=== PATIENT | female | born 1990 | race Caucasian/White ===

== ENCOUNTER → 2019-08-16 09:05 | Outpatient (BNVA) | payer MEDICAID, SELFPAY | PROVIDERS: Family Provider Counselor Professional; Visit Provider Obstetrics & Gynecology | DX: Z34.92 Encounter for supervision of normal pregnancy, unspecified, second trimester | CPT/HCPCS: 80307; 81000; 81003; 85027; 86592; 86762; 86803; 86850; 86900; 87086; 87340; 87389; 87491; 87591 ==

== ENCOUNTER → 2019-09-05 09:02 | Outpatient (BNVA) | payer MEDICAID, SELFPAY | PROVIDERS: Family Provider Counselor Professional; Visit Provider Obstetrics & Gynecology | DX: Z34.02 Encounter for supervision of normal first pregnancy, second trimester (principal) | CPT/HCPCS: 76805; 80076; 84315 ==

== ENCOUNTER → 2019-09-16 10:52 | Outpatient (BNVA) | payer MEDICAID, SELFPAY | PROVIDERS: Family Provider Counselor Professional; Visit Provider Obstetrics & Gynecology | DX: O35.1XX0 Maternal care for (suspected) chromosomal abnormality in fetus, not applicable or unspecified (principal); Z3A.21 21 weeks gestation of pregnancy | CPT/HCPCS: 81003 ==

== ENCOUNTER 2021-02-21 15:06 | Inpatient (IN) | payer MEDICAID, SELFPAY ==
[2021-02-21] VITALS (47 sets, daily range): BP systolic 114–176; BP diastolic 61–93; PULSE 82–134; RESP 16; TEMP 36.5–37.1; O2SAT 98–100
[2021-02-21] MEDS: lactated ringers 1,000 ML 999 ML IV (15:34)
[2021-02-21] MEDS: ampicillin 2,000 MG in sodium chloride 0.9% (plus) 50 ML 100 MG IV (15:43)
--- NOTE | 2021-02-21 15:43 | PM.OBGYHP ---
Providers/Chief Complaint Admitting Physician: Dcu Wiggins MD Chief Complaint: SROM HPI ELECTRONIC GAME DEVELOPER History of Present Illness Dayan Montgomery is a 30 year old female with an EDC of 03/13/2021. She is a 4, para 3 female with 1 previous section with her second infant secondary to breech presentation. She had a previous vaginal after at around 30 weeks gestation at home with her last . It was a rapid labor and was complicated by methamphetamine use at the time. She claims she has been clean since that time. We did receive records from [facility] where she was being seen by Dr. Garza. At her first visit her drug screen was negative. Her blood type is O+ with antibody screen negative. Rubella is immune, RPR was nonreactive and hepatitis C was positive. She did have recent case of Covid with positive test on 01/29/2021. She is presently asymptomatic with no lingering problems. She has spontaneous rupture membranes at home and arrived to [facility] in [place]. When found to be in labor, she asked to be sent to the nearest hospital and therefore this physician was called and she was sent to [facility] labor and delivery unit. Upon arrival to labor and delivery she is definitely in active labor with ruptured membranes and is 4 cm dilated on arrival. She continues to deny any recent drug use or abuse. She does have some elevated blood pressures, however she is an active labor and in pain. She does desire epidural anesthesia and this will be offered to her after fluid boluses and. As we do not know group B status, ampicillin protocol has been started. Will contact either Dr. Harding or the ear nose throat physician on-call for backup just in case we need emergency section due to previous section. She would like to proceed with vaginal after . Present Details : 4 Para: 3 Review of Systems Const: Denies: fever(s), chills or change in weight Eyes: Denies: change in vision or blurry vision ENMT: Denies: mouth pain or oral sores Card: Denies: chest pain, palpitations, edema or syncope Resp: Denies: dyspnea, productive cough, non-productive cough or wheezing GI: Reports: abdominal pain (Contractions.); Denies: nausea, vomiting or heartburn : Reports: amenorrhea (.); Denies: flank pain Musc: Denies: neck pain, back pain or joint pain Skin/Breast: Denies: rash Psych: Denies: anxiety or depression Endo: Denies: polyuria, cold intolerance or excessive sweating Hiro/Lymph: Denies: easy bruising All/Imm: Denies: urticaria or facial swelling Medications/Allergies Home Medications Medication Instructions Recorded Confirmed Last Taken Type vitamin#30 30 mg iron-10 1 cap PO DAILY cap 08/16/19 02/21/21 Unknown History mg iron-folic acid 1 mg-omg3 capsule ranitidine HCl 150 mg capsule 150 mg PO QDAY 08/16/19 02/21/21 Unknown History iron 325 mg PO DAILY 02/21/21 02/21/21 Unknown History Allergies Allergy/AdvReac Type Severity Reaction Status Date / Time azithromycin Allergy Mild as a Verified 02/21/21 15:17 child, does not remember what kind of reaction. sulfamethoxazole Allergy Mild hives Verified 02/21/21 15:17 [From Bactrim] trimethoprim [From Bactrim] Allergy Mild hives Verified 02/21/21 15:17 erythromycin base Allergy Unknown Verified 02/21/21 15:17 tramadol Allergy ALGY-Hives Verified 02/21/21 15:17 PFSH ELECTRONIC GAME DEVELOPER PFSH: Family History Mother Stroke Hypertension Family/Other Heart disease maternal uncle Social History Smoking and tobacco status: current every day smoker cigarettes Packs smoked per day: 0.5 Alcohol intake: never Last substance use date: 06/23/19 Additional social history: well-balanced Other Female Reproductive History: Hx Age of Menarche: 15 Duration of menses: 6-7 days (4-7 days) Date of Last Menstrual Period: 04/08/19 Cycle Length: regular Menstrual flow: normal/abnormal: normal History History History 3 Term 2 Miscarriages/Ectopic 0 0 Living Children 2 Past Pregnancies Del. Date GA/Weeks Outcome Route Wt Inf Gender Labor Lgth Comp. Anesthesia Location 12/27/11 38 live - full term Vaginal 2.58 kg Female 13.[address] [facility], [facility] 12/29/14 40 live - full term 2.948 kg Female regional [facility], [facility] Calculator Estimated Delivery Date Method Current WG Current Estimate 01/13/20 LMP (Certain) 97w 6d Vitals/I&O/Wt Last Vital Signs Temp 98.1 F 02/21/21 15:04 Pulse 89 02/21/21 15:24 BP 176/92 02/21/21 15:24 Physical Exam Const: COMMON NORMALS: no acute distress (Obviously uncomfortable with contractions.) and average body habitus HENMT: COMMON NORMALS: moist oral mucous membranes Chest: COMMONS NORMALS: normal inspection of the chest Resp: COMMON NORMALS: normal respiratory effort, No retractions, No use of accessory muscles and clear to auscultation bilaterally Cardio: COMMON NORMALS: regular rate, regular rhythm and No murmurs present (Cardio) GI: COMMON NORMALS: Normal to inspection, nondistended, normoactive bowel sounds present (She has a gravid uterus.), Soft to palpation and non-tender : COMMON NORMALS: Yes no CVA tenderness MANUAL OB EXAM: dilated 5 cm, effaced 75% and station -1 Back/Pelvis: COMMON NORMALS: no CVA tenderness and no thoracic nor lumbar tenderness Extremity: COMMON NORMALS: normal to inspection, full ROM and no pedal edema Neuro: COMMON NORMALS: CN's II-XII intact bilaterally, moves all extremities and no focal motor deficits Psych: COMMON NORMALS: mental status grossly normal, cooperative and normal affect (Slightly anxious.) Skin: COMMON NORMALS: no rashes or lesions noted A&P Assessment and plan (1) 37 or more weeks gestation of : She presently has spontaneous rupture membranes and is an active labor. We will plan for vaginal after per her request. I will seek backup from a physician with section privileges. Also will proceed with group B strep precautions with intravenous ampicillin at this time. Status: Acute (2) labor in third trimester: Plan routine labor and delivery process with backup of a ear nose throat physician with privileges. Status: Acute (3) Hepatitis C antibody test positive: We will continue to use universal precautions and encourage her to proceed with treatment after delivery of the infant. Status: Acute (4) History of drug dependence/abuse: Patient denies any recent drug use or abuse. She has a history of IV methamphetamine use with positive hepatitis C status. Drug screen was negative at her ear nose throat physician's office and will recheck care. Status: Acute Attestations Medical Necessity Statement*: This patient is with a 37-week intrauterine . She has had a previous section secondary to breech position with a previous vaginal after although it was very early. At this time she appears to be progressing nicely but plan 1-2 midnight hospital stay. Time Spent in Patient Care: 16 - 35 minutes Coding Level of Care Code Acute Set Up Inspector for Chg Fwd Diagnoses 37 or more weeks gestation of labor in third trimester O60.03 Hepatitis C antibody test positive R76.8 History of drug dependence/abuse F19.21
[2021-02-21 15:50] LABS: Basophils # 0.1 10^3/uL (0.0-0.1); Basophils % 0.4 %; Eosinophils # 0.1 10^3/uL (0.0-0.8); Eosinophils % 0.4 %; Hemoglobin 8.6 g/dL (11.5-15.3); Lymphocytes # 2.5 10^3/uL (0.8-4.8); Lymphocytes % 15.4 %; Mean Corpuscular HGB Conc 28.7 g/dL (30.0-36.0); Mean Corpuscular Hemoglobin 19.5 pg (28.0-34.0); Monocytes # 1.1 10^3/uL (0.2-0.9); Monocytes % 6.7 %; Neutrophils # 12.35 10^3/uL (1.8-7.7); Neutrophils % 76.2 %; Nucleated Red Blood Cells % 0.1 %; Platelet Count 233 10^3/cmm (130-400); Red Blood Count 4.41 10^6/uL (4.1-5.3); Red Cell Distribution Width 19.8 % (12.1-15.1); White Blood Count 16.2 10^3/uL (4.0-10.0)
[2021-02-21 15:51] LABS: Amphetamines Screen Urine Negative (Negative); Barbiturates Screen Urine Negative (Negative); Benzodiazepines Screen Urine Negative (Negative); Cocaine Screen Urine Negative (Negative); Opiate Screen Urine Negative (Negative); PCP Screen Urine Negative (Negative); THC Screen Urine Negative (Negative)
[2021-02-21] MEDS: ondansetron 2 mg/ML SDV 2 mL 4 MG IVP (16:15)
[2021-02-21 16:26] LABS: Urine Creatinine 44 mg/dL (28-217); Urine Protein Random 11 mg/dL
[2021-02-21 16:30] LABS: UPRO/UCREAT Ratio 0.25 mg/mg CR
--- NOTE | 2021-02-21 16:43 | ANES.PREANE2 ---
Pre-Anesthetic Assessment Pre-Anesthetic Assessment: Height/Weight: Height 1.55 m Weight 63.503 kg Temp Pulse Resp BP 98.1 F 92 16 149/74 02/21/21 15:04 02/21/21 16:39 02/21/21 16:40 02/21/21 16:39 Preop Diagnosis: labor pain Proposed Procedure: epidural Familial anesthetic complications: none Was Beta Dagmar taken within 24 hours: N/A Was Clonidine taken within 24 hours: N/A Social: Social History: Tobacco Packs per day: 0.5 Exam: Pre-Anes Outpt Exam: alert, oriented x 3, clear to auscultation bilaterally and regular rate & rhythm Airway: Submandibular: WNL Cervical ROM: WNL Dentition: Full History/ROS: Other Pulmonary: Pulmonary: None reported CV/HEM: CV/HEM: Anemia : : None reported Hepatic: Hepatic: Hepatitis Comments: hep C GI: GI: GERD Metabolic: Metabolic: None reported Musc/skel: Musc/skel: None reported Neuropsych: Neuropsych: Anxiety, Bipolar and Depression Anesthetic Plan: ASA status: 3 Anesthesia: Regional (specify below) Risk of > 500 ml blood loss (7ml/kg in children): No Meds/Allergies Current Medications: Current Medications Generic Name Dose Route Start Last Admin Trade Name Freq PRN Reason Stop Dose Admin Lactated Ringer's 1,000 mls @ 999 m ls/hr 02/21/21 15:13 02/21/21 15:34 Lactated Ringers IV 999 mls/hr .Q1H1M PRN Administration See label comment s Ondansetron HCl 4 mg 02/21/21 15:04 02/21/21 16:15 Ondansetron 2 Mg /Ml Sdv 2 Ml IVP 4 mg Q4H PRN Administration NAUSEA AND VOMITI NG PFSH Anesthesia PFSH: Family History Mother Stroke Hypertension Family/Other Heart disease maternal uncle Social History Smoking and tobacco status: current every day smoker cigarettes Packs smoked per day: 0.5 Alcohol intake: never Last substance use date: 06/23/19 Additional social history: well-balanced Female Reproductive History: : 4 Data Anesthesia CBC & Chem 7: 02/21/21 15:33 Other Labs: Laboratory Results - last 48 hr 02/21/21 02/21/21 02/21/21 15:30 15:30 15:33 WBC 16.2 H RBC 4.41 Hgb 8.6 L Hct 30.0 L MCV 68.0 L MCH 19.5 L MCHC 28.7 L RDW 19.8 H Plt Count 233 MPV 11.0 H Neut % (Auto) 76.2 Lymph % (Auto) 15.4 [place] % (Auto) 6.7 Eos % (Auto) 0.4 Baso % (Auto) 0.4 Neut # (Auto) 12.35 H Lymph # (Auto) 2.5 [place] # (Auto) 1.1 H Eos # (Auto) 0.1 Baso # (Auto) 0.1 Nucleated RBC % (auto) 0.1 Nucleated RBCs # 0.0 U Random Total Protein 11 Urine Creatinine 44 Protein/Creatinin Ratio 0.25 Urine Opiates Screen Negative Ur Barbiturates Screen Negative Ur Phencyclidine Scrn Negative Ur Amphetamines Screen Negative U Benzodiazepines Scrn Negative Urine Cocaine Screen Negative U Marijuana (THC) Screen Negative Cardiac Studies: No Data to Display
--- NOTE | 2021-02-21 17:16 | ANES.PROC ---
Anesthesia Procedures Procedure/Date: 02/21/21 epidural Procedure Narrative: epidural complete, bolus given, epidural pump initiated with DIRECTOR COMM[facility]ITY C[facility] education given, vitals taken during procedure using OBIX system and satisfactory throughout, patient admits to decrease pain, report of procedure to OB RN Epidural: Time Out Performed: Yes Consents Signed: Procedure Consent Consent: requested by attending/covering physician, from patient, risks and benefits reviewed and patient agrees to proceed Lumbar Level: L3-L4 Epidural position: sitting Epidural procedure: sterile prep of area, 1% lidocaine to numb the area (3 mL), 18 g needle, negative for paresthesia passed, neg for paresthesia, test dose given, 1.5% xylocaine 1:200k epi (5 mL), 0.2% Ropivacaine bolus ml (5 mL), placed PCEA, no systemic response, sterile dressing applied, L.U.D. no apparent complications and 0.2% Ropiavacaine @ mls/hr (13 mL/hr)
[2021-02-21] MEDS: ampicillin 1,000 MG in sodium chloride 0.9% (plus) 50 ML 100 MG IV (19:24)
[2021-02-21] MEDS: acetaminophen 325 mg Tablet 650 MG PO (19:59)
[2021-02-21] MEDS: oxytocin 30 UNIT/500 ML BAG 999 UNIT IV (21:08)
--- NOTE | 2021-02-21 21:21 | PM.DELIVERY ---
Delivery Note: Date of delivery: February 21, 2021 this 30-year-old 4 now para 4 female with an EDC of 03/13/21 had spontaneous rupture membranes at home a little before noon on the day of delivery. She went to [facility] for evaluation and asked to be sent to the nearest hospital for delivery as her last infant came very quickly. The emergency doctor at [facility] talk with this physician who agreed to accept the patient in transfer and she was transferred to [facility]. Upon arrival she was found to be approximately 4 cm dilated with contractions and obvious rupture of membranes. I was not told until arrival here that she had 1 previous section with her second secondary to breech presentation. Therefore, an filbert grower with privileges was called and was here at time of delivery. She received epidural anesthesia and labored throughout the evening hours to complete cervical dilatation. Once complete she delivered fairly quickly by spontaneous vaginal delivery at 2104 a 5 pound 10 ounce viable male . was suctioned at at the perineum and then delivered in occiput posterior position. The was then placed on mother's abdomen after delivery and suctioned more. After 1 minute, the umbilical cord was clamped and then cut by the infants grandmother. The umbilical cord had 3 blood vessels and there was no nuchal cord at delivery. Infant Apgars were 8 and 9 at 1 and 5 minutes respectively. The placenta delivered spontaneously at 2108 and had lots of calcifications. Evaluation of the vaginal vault and perineum and periurethral area found a small first-degree laceration in the right periurethral region which required no sutures. There was no other lacerations or problems. A sweep of the vaginal vault found the fundus to be firm with minimal bleeding. Mother and tolerated things well and there were no complications. Estimated blood loss approximate 144 mL. Pre-Delivery Course: This patient was followed by a physician in [facility] for her . Evaluation found her to have a blood type of O+ with antibody screen negative. Hepatitis B was negative hip, hepatitis C was positive, drug screen was negative, rubella was immune and RPR was nonreactive. Group B strep was not done prior to delivery but mom received 2 doses of ampicillin prior to delivery. Delivery: Spontaneous vaginal delivery. Post-Delivery Status: Patient is doing well at this time and will be followed for routine care. We'll adjust orders as necessary. A&P Assessment and plan (1) 37 or more weeks gestation of : Patient delivered by spontaneous vaginal delivery after spontaneous rupture membranes and onset of labor at home. Status: Acute (2) labor in third trimester: This was a late delivery and infant looks good at this time. Status: Acute (3) Hepatitis C antibody test positive: Will recommend follow-up as an outpatient with a hepatitis provider and monitor the infant at around 4 years of age. Status: Acute (4) History of drug dependence/abuse: Drug screen was negative here as it was at the filbert grower's office at onset of care. Status: Acute Coding Level of Care Code Acute Customer Service Cashier for Chg Fwd Diagnoses 37 or more weeks gestation of labor in third trimester O60.03 Hepatitis C antibody test positive R76.8 History of drug dependence/abuse F19.21
[2021-02-22] VITALS (15 sets, daily range): BP systolic 110–157; BP diastolic 56–80; PULSE 93–115; RESP 15–16; TEMP 35.7–36.7
--- NOTE | 2021-02-22 | PC.NURSE ---
This RN placed [place] Crisis Call to [facility]. Advised patient has reported that [facility] took custody of her child last year due to drug use. Advised patient reports that she has been clean for over a year and that patient's UDS was negative here upon admission and she also had a negative UDS documented in her records from [facility]. Advised that there was a question regarding limited care, 6 visits have been documented in her records and patient reports that she went to every visit that was scheduled. Patient is caring for and bonding well with baby.
[2021-02-22] MEDS: nicotine 7 mg Patch 1 PATCH TRANSDERMA (00:24)
[2021-02-22] MEDS: HYDROcodone-acetaminophen 5-325 mg Tablet PO ×3 (00:25→21:53)
[2021-02-22] MEDS: acetaminophen 325 mg Tablet 650 MG PO (03:52)
--- NOTE | 2021-02-22 07:29 | PM.OBGYPN ---
STRAIN TECHNICIAN Subjective Labor: Station: +2 Amniotic Membrane Status: Ruptured Monitor Mode: External Contraction Pattern: Regular Vitals/I&O/Wt Last Vital Signs Temp 97.3 F L 02/22/21 04:57 Pulse 93 02/22/21 07:08 Resp 16 02/22/21 01:09 BP 138/80 02/22/21 07:08 Pulse Ox 98 02/21/21 17:32 02/21/21 02/22/21 02/22/21 22:59 06:59 14:59 Intake Total 1740.0 / 1740.0 Output Total 500 / 500 300 / 800 Balance 1240.0 / 1240.0 -300 / 940.0 Weight last 48 hrs Weight 63.503 kg Physical Exam Narrative: EXAM NARRATIVE: Patient is patient has done well overnight with just mild lochia. She denies any problems or concerns. Const: COMMON NORMALS: no acute distress, average body habitus and healthy appearing HENMT: COMMON NORMALS: moist oral mucous membranes Resp: COMMON NORMALS: normal respiratory effort, No retractions, No use of accessory muscles and clear to auscultation bilaterally AUSCULTATION: clear to auscultation bilaterally Cardio: COMMON NORMALS: regular rate and regular rhythm RATE: regular rate RHYTHM: regular rhythm GI: COMMON NORMALS: Normal to inspection, nondistended, normoactive bowel sounds present and Soft to palpation; negative for non-tender (Mild tenderness over the uterus with fundus firm. We will watch for signs ) PALPATION: Yes Soft to palpation : COMMON NORMALS: Yes no CVA tenderness BLADDER/KIDNEY EXAM: Yes no CVA tenderness Back/Pelvis: COMMON NORMALS: no CVA tenderness Extremity: COMMON NORMALS: normal to inspection, full ROM and no pedal edema Neuro: COMMON NORMALS: no focal motor deficits and no sensory deficits noted Psych: COMMON NORMALS: mental status grossly normal and cooperative Urinary Catheter Management^: Quinones: Cath Placed During This Visit: yes, but has since been removed by the nurse Reason for Continuing Indwelling Catheter: Other Urinary Catheter Date of Insertion: 02/21/21 Urinary Catheter Time of Insertion: 18:00 Date Urinary Catheter Removed: 02/21/21 Time Urinary Catheter Discontinued: 20:38 Data : 02/21/21 15:33 A&P Assessment and plan (1) History of drug dependence/abuse: Mom checked negative but we will go ahead and do a meconium test on baby. Status: Acute (2) Hepatitis C antibody test positive: Discussed with mom need for follow-up as an outpatient. Status: Acute (3) Normal spontaneous vaginal delivery: Patient is doing well at this time. However, with mild tenderness over the uterus I am worried about developing an endometritis. We will watch closely. Status: Acute Attestations Medical Necessity Statement*: This patient delivered late yesterday evening with sparse care. She requires at least 1 more midnight hospital stay so we can observe for possible endometritis. Time Spent in Patient Care: 16 - 35 minutes Coding Level of Care Code Acute Marketing Communications Associate for [facility] Fwd Diagnoses History of drug dependence/abuse F19.21 Hepatitis C antibody test positive R76.8 Normal spontaneous vaginal delivery O80
[2021-02-22] MEDS: ibuprofen 800 mg tablet PO ×3 (08:04→20:49)
[2021-02-22] MEDS: docusate sodium 100 mg Capsule PO ×2 (08:04→20:49)
[2021-02-22] MEDS: ferrous sulfate EC 325 mg Tablet PO (08:05)
--- NOTE | 2021-02-22 09:22 | ANE.PACU2 ---
Inpatient post-anesthesia follow up: Airway intact: Yes Vital signs: Temperature 97.3 F Pulse Rate 93 Respiratory Rate 16 Blood Pressure 138/80 Pulse Oximetry 98 Oxygen Delivery Me thod Room Air Oxygen Flow Rate Fraction of Inspir ed Oxygen Hydration adequate: Yes Nausea and vomiting: No Pain level: 3 Mental status: Baseline Additional Comments: denies headache, up and walking, no weakness, complaining of whole body soreness, complains of meralgia parasthetica in both thighs. Tender to palpation of epidural site, no signs of infection, no erythema. Educated patient to continue to monitor for resolution of meralgia parasthetica
[2021-02-22] MEDS: prenatal vitamin Capsule 1 CAP PO (09:36)
[2021-02-22 10:15] LABS: Hemoglobin 7.5 g/dL (11.5-15.3); Mean Corpuscular HGB Conc 28.8 g/dL (30.0-36.0); Mean Corpuscular Hemoglobin 19.9 pg (28.0-34.0); Platelet Count 252 10^3/cmm (130-400); Red Blood Count 3.77 10^6/uL (4.1-5.3); Red Cell Distribution Width 19.9 % (12.1-15.1); White Blood Count 21.9 10^3/uL (4.0-10.0)
[2021-02-22] MEDS: pantoprazole DR 40 mg Tablet PO (11:58)
[2021-02-22 15:24] LABS: Coronavirus Test Green County Not Detected
[2021-02-22] MEDS: nicotine 14 mg Patch 1 PATCH TRANSDERMA (16:55)
--- NOTE | 2021-02-22 19:00 | PC.NURSE ---
[facility] Utility Tender Carding, in room with patient discussing custody of baby at this time. [facility] taking custody of baby. At this time [facility] is instructing that baby cannot remain in room with mother and will be moved to another room with foster placement, baby's paternal grandmother Sherice who is in the waiting room at this time.
--- NOTE | 2021-02-22 20:00 | PC.NURSE ---
[facility] Grease And Tallow Pumper has spoken with [facility] and [facility] baby may return to mother's room to breastfeed but paternal grandmother must be present during feeding. This RN and ANUJ Jorgensen spoke with mother and paternal grandmother regarding expected behavior and interaction. Advised that if there was any conflict baby would need to remain in the nursery. Mother and paternal grandmother verbalize understanding.
--- NOTE | 2021-02-22 20:00 | PC.NURSE ---
Patient requesting to go outside to smoke a cigarette. This RN called the Planishing Hammer Operator, ANUJ Jara. ANUJ Jara stated that patients could not leave the hospital to smoke and patient would need to sign an AMA form to leave the unit. Offered to speak to Dr Wiggins about nicotine patches or gum and the patient declines.
[2021-02-23] VITALS (7 sets, daily range): BP systolic 112–146; BP diastolic 64–87; PULSE 80–110; RESP 15–16; TEMP 35.6–36.9
[2021-02-23] MEDS: HYDROcodone-acetaminophen 5-325 mg Tablet PO (05:12)
--- NOTE | 2021-02-23 07:33 | PM.OBGYDC ---
Discharge Providers DOMAIN ARCHITECT Date of Admission: 02/21/21 15:06 Date of Discharge: 02/23/21 Attending Provider at Admission: Duc Wiggins MD Attending Provider at Discharge: Duc Wiggins MD Diagnoses at Discharge Discharge Diagnosis (1) History of drug dependence/abuse: Status: Acute (2) Hepatitis C antibody test positive: Status: Acute (3) Normal spontaneous vaginal delivery: Status: Acute (4) Endometritis following delivery: Status: Acute Reason for Visit Reason for Visit: [facility] Hospital Course Hospital Course This 30-year-old 4 now para 4 female was admitted to [facility] OB department in transfer from [facility] in [place] in active labor after spontaneous rupture membranes at home. She delivered by spontaneous vaginal delivery a healthy, viable male infant without significant problems. Mom did receive some care from Dr. Garza at [facility]. She was transferred here as she was in active labor and had a history of fast labor so she asked to be sent to the nearest hospital. As she was unknown group B strep, she was started on ampicillin and received 2 doses prior to delivery. Her white blood cell count has gone up and she is tender over the uterus therefore I suspect she is beginning an endometritis and will begin on antibiotics for that. She also has significant microcytic anemia and will be started on twice daily iron supplementation. She will be asked to follow-up with Dr. Garza, her telecommunications manager in about 6 weeks and as needed. This patient has breast-fed well and has bonded well with the . She has been very appropriate with this infant though her other children are not in her custody. She is working with family services to hopefully be able to maintain custody of this infant. Information Peripartum Data: Delivery Method: Vaginal Physical Exam Const: COMMON NORMALS: no acute distress, healthy appearing, alert and well nourished HENMT: COMMON NORMALS: moist oral mucous membranes Resp: COMMON NORMALS: normal respiratory effort, No use of accessory muscles and clear to auscultation bilaterally AUSCULTATION: clear to auscultation bilaterally Cardio: COMMON NORMALS: regular rate, regular rhythm and No murmurs present (Cardio) RATE: regular rate RHYTHM: regular rhythm GI: COMMON NORMALS: Normal to inspection, nondistended, normoactive bowel sounds present and Soft to palpation (Fundus is firm and a little tender.) PALPATION: Yes Soft to palpation (Fundus is firm and a little tender.) Extremity: COMMON NORMALS: normal to inspection, full ROM and no pedal edema Neuro: COMMON NORMALS: no focal motor deficits and no sensory deficits noted SENSORIUM/ORIENTATION: Yes alert Psych: COMMON NORMALS: mental status grossly normal, cooperative and normal affect Urinary Catheter Management^: Quinones: Cath Placed During This Visit: yes, but has since been removed by the nurse Reason for Continuing Indwelling Catheter: Other Urinary Catheter Date of Insertion: 02/21/21 Urinary Catheter Time of Insertion: 18:00 Date Urinary Catheter Removed: 02/21/21 Time Urinary Catheter Discontinued: 20:38 Discharge Data Data Completed and Pending: Labs from last 24 hours 02/22/21 02/21/21 09:45 15:31 WBC 21.9 H RBC 3.77 L Hgb 7.5 L Hct 26.0 L MCV 69.0 L MCH 19.9 L MCHC 28.8 L RDW 19.9 H Plt Count 252 MPV 12.0 H Nasal/Oral COVID-1 9 PCR Not detected Vitals: Last Vital Signs Temp 96.1 F L 02/23/21 07:29 Pulse 80 02/23/21 07:29 Resp 15 02/22/21 21:57 BP 146/87 02/23/21 07:29 Pulse Ox 98 02/21/21 17:32 Discharge Plan Discharge Patient Disposition: Home Condition: Stable Prescriptions: New docusate sodium 100 mg Capsule 100 mg PO BID Qty: 60 RF: 1 ferrous sulfate 325 mg (65 mg iron) Tablet,Delayed Release (Dr/Ec) 325 mg PO BID Qty: 60 RF: 3 ibuprofen 800 mg Tablet 800 mg PO TID Qty: 90 RF: 1 pantoprazole 40 mg Tablet,Delayed Release (Dr/Ec) 40 mg PO DAILY Qty: 30 RF: 2 amoxicillin-pot clavulanate [Augmentin] 875-125 mg tablet 1 tab PO BID Qty: 14 RF: 0 Continued PNV #[id number] 30 mg iron-10 mg iron-1 mg capsule 1 cap PO DAILY RF: 0 iron 325 mg (65 mg iron) Tablet 325 mg PO DAILY RF: 0 Discontinued ranitidine HCl 150 mg capsule 150 mg PO QDAY RF: 0 Discharge Orders: Discharge Order (Routine); Ordered 02/23/21 Ordered By: Duc Wiggins Referrals: Maury Garza MD [Referring] - 6 Weeks Discharge Diet: Usual diet Discharge Activity: Resume usual activity Patient Instructions: Opioid Safety Discharge Attestations DOMAIN ARCHITECT Time Spent in Discharge Care*: less than 30 min Specific Discharge Activities: Specific discharge activities: educating patient, documenting/other paperwork and evaluating patient/reviewing data Time Spent in Smoking Cessation: Time spent discussing smoking cessation with patient: 3 to 10 minutes Coding Level of Care Code Acute Director Of Clinical Applications for Chg Fwd Diagnoses History of drug dependence/abuse F19.21 Hepatitis C antibody test positive R76.8 Normal spontaneous vaginal delivery O80 Endometritis following delivery O86.12
[2021-02-23] MEDS: ferrous sulfate EC 325 mg Tablet PO (09:10)
[2021-02-23] MEDS: docusate sodium 100 mg Capsule PO (09:10)
[2021-02-23] MEDS: nicotine 14 mg Patch 1 PATCH TRANSDERMA (09:10)
[2021-02-23] MEDS: pantoprazole DR 40 mg Tablet PO (09:10)
[2021-02-23] MEDS: prenatal vitamin Capsule 1 CAP PO (09:10)
[2021-02-23] MEDS: ibuprofen 800 mg tablet PO ×2 (09:10→15:26)
--- NOTE | 2021-02-23 09:54 | PC.NURSE ---
[facility] WORKER CAME IN TO CHECK ON BABY. TOLD MOM WHEN COURT DATE WAS AND ANSWERED THE QUESTIONS FOR MOM THAT SHE COULD.
--- NOTE | 2021-02-23 11:13 | PC.NURSE ---
Addendum entered by Delicia Mancia RN 02/23/21 11:16: Provided Understanding book and contact information. Original Note: Lacatation consult This mom will need to be from her baby for a few days. Instructed her on hand expression to maintain breastmilk. Encouraged her to get in touch with WIC to get a hand pump for use at home. (she has already contacted WIC and has a pump lined up.
--- NOTE | 2021-02-23 13:54 | PC.NURSE ---
SOMEONE CALLED FROM [facility] OFFICE AND WANTED NAME OF BABY AND I ASKED THEM TO FAX US A REQUEST BECAUSE OF [employer] THE NUMBER ON THE PHONE WAS JUST FROM OPERATIONAL REVIEW SERGEANT. PAPERS RECEIVED AND THIS PICKLING MACHINE OPERATOR CALLED THEM BACK WITH INFORMATION.
--- NOTE | 2021-02-24 15:07 | PC.RESP ---
Smoking Cessation information sent to patient.
== END 2021-02-23 17:55 | disposition home or self-care (01) | DRG 805 ==
LOC: OPOB 15:07 → OBGYN 15:07
PROVIDERS: Admitting Provider Family Medicine; Visit Provider Family Medicine
DX: O98.42 Viral hepatitis complicating childbirth (principal); O60.23X0 Term delivery with preterm labor, third trimester, not applicable or unspecified; Z37.0 Single live birth; O99.324 Drug use complicating childbirth; O86.12 Endometritis following delivery; B19.20 Unspecified viral hepatitis C without hepatic coma; F15.21 Other stimulant dependence, in remission; O34.219 Maternal care for unspecified type scar from previous cesarean delivery; O99.334 Smoking (tobacco) complicating childbirth; F17.210 Nicotine dependence, cigarettes, uncomplicated; O99.02 Anemia complicating childbirth; D50.9 Iron deficiency anemia, unspecified; Z3A.37 37 weeks gestation of pregnancy; Z86.16 Personal history of COVID-19; Z87.51 Personal history of pre-term labor
CPT/HCPCS: 36415; 51702; 59025; 59409; 80306; 82570; 83986; 84156; 85025; 85027; 87635; 99211; J0290; J2405; J2795

== ENCOUNTER 2024-03-01 08:23 | Outpatient (CLI) | payer MEDICAID, SELFPAY ==
--- NOTE | 2024-03-01 08:30 | US_ITS ---
WS: [id number] ULTRASOUND ABDOMEN LIMITED CLINICAL INFORMATION: R76.8 - Other specified abnormal immunological findings i... COMPARISON: None. FINDINGS: Liver Size: Normal. Craniocaudal length: 14.2 cm. Echogenicity: Normal. Surface nodularity: None. Mass (size and location): None. Bile ducts Intrahepatic ducts: Normal. Common bile duct diameter: 0.2 cm. Gallbladder Normal. Gallstones: None. Gallbladder sludge: None. Gallbladder wall thickening: None. Pericholecystic fluid: None. Sonographic Jacobo sign: Absent. Pancreas Normal as visualized. Right kidney: Normal. Hydronephrosis: None. Size: 10.1 cm x 5.1 cm x 4.6 cm. Abdominal aorta and IVC Visualized portions are normal. Ascites: None. US/US liver [id number] IMPRESSION: 1. Liver is normal in appearance. 2. Normal gallbladder. 3. Normal common bile duct. 4. No hydronephrosis in the RIGHT kidney.
== END 2024-03-01 08:24 | disposition home or self-care (01) ==
LOC: RAD 08:23
PROVIDERS: Visit Provider Student in an Organized Health Care Education/Training Program
DX: R76.8 Other specified abnormal immunological findings in serum (principal)
CPT/HCPCS: 76705

== ENCOUNTER 2024-03-05 10:11 | Outpatient (CLI) | payer MEDICAID, SELFPAY ==
[2024-03-05 11:09] LABS: Hepatitis A Antibody IgM Non-Reactive (Nonreactive); Hepatitis B Core IgM Non-Reactive (Nonreactive); Hepatitis B Surface Antigen Non-Reactive (Nonreactive); Hepatitis C Virus Antibody Reactive (Nonreactive)
[2024-03-07 14:55] LABS: HEP C RNA Viral Load Quant 6.97 Log IU/mL (NOT DETECTED); HEP C RNA Viral Load Quant 9330000 IU/mL (NOT DETECTED)
[2024-03-11 12:44] LABS: Hepatitis C Genotype RNA 3
== END 2024-03-05 10:12 | disposition home or self-care (01) ==
LOC: LAB 10:12
PROVIDERS: Visit Provider Student in an Organized Health Care Education/Training Program
DX: R76.8 Other specified abnormal immunological findings in serum (principal)
CPT/HCPCS: 36415; 80074; 81025; 87522; 87806; 87902

== ENCOUNTER 2024-03-18 08:30 | Outpatient (CLI) | payer MEDICAID, SELFPAY ==
[2024-03-18 09:18] LABS: Basophils % 0.5 %; Eosinophils # 0.1 10^3/uL (0.0-0.8); Eosinophils % 0.7 %; Hematocrit 43.1 % (36-47); Lymphocytes # 2.4 10^3/uL (0.8-4.8); Lymphocytes % 32.3 %; Mean Corpuscular HGB Conc 32.9 g/dL (30-55); Mean Corpuscular Hemoglobin 27.5 pg (27-33); Mean Corpuscular Volume 83.4 fl (85-98); Mean Platelet Volume 11.3 fL (7.4-10.4); Monocytes # 0.6 10^3/uL (0.2-0.9); Monocytes % 8.2 %; Neutrophils # 4.25 10^3/uL (1.8-7.7); Neutrophils % 57.9 %; Nucleated Red Blood Cells % 0 %; Platelet Count 201 10^3/cmm (157-399); Red Blood Count 5.17 10^6/uL (3.85-5.65); Red Cell Distribution Width 14.2 % (12.1-15.1); White Blood Count 7.34 10^3/uL (3.29-11.43)
[2024-03-18 09:40] LABS: Alanine Aminotransferase 45 U/L (0-33); Albumin Level 4.5 g/dL (3.5-5.2); Alkaline Phosphatase 70 U/L (35-105); Anion Gap 18.7 (5-19); Aspartate Amino Transferase 39 U/L (0-32); Blood Urea Nitrogen 11 mg/dL (6-20); Carbon Dioxide 22 mmol/L (22-29); Chloride 103 mmol/L (98-107); Glomerular Filtration Rate 83.7 mL/min (90-130); Glucose 95 mg/dL (65-115); Osmolality Calculated 289 mOsm/kg (285-295); Potassium 3.7 mmol/L (3.5-5.1); Sodium 140 mmol/L (136-145); Total Bilirubin 0.6 mg/dL (0.15-1.2); Total Protein 7.5 g/dL (6.6-8.7)
== END 2024-03-18 08:31 | disposition home or self-care (01) ==
PROVIDERS: PCP Student in an Organized Health Care Education/Training Program; Visit Provider Student in an Organized Health Care Education/Training Program
DX: B19.20 Unspecified viral hepatitis C without hepatic coma (principal)
CPT/HCPCS: 36415; 80053; 85025

== ENCOUNTER 2024-04-11 12:28 | Outpatient (CLI) | payer MEDICAID, SELFPAY ==
[2024-04-11 13:09] LABS: Basophils # 0.1 10^3/uL (0.0-0.1); Basophils % 0.4 %; Eosinophils # 0.1 10^3/uL (0.0-0.8); Eosinophils % 0.8 %; Lymphocytes # 3.6 10^3/uL (0.8-4.8); Lymphocytes % 31.1 %; Mean Corpuscular HGB Conc 33.8 g/dL (30-55); Mean Corpuscular Hemoglobin 27.5 pg (27-33); Mean Corpuscular Volume 81.3 fl (85-98); Mean Platelet Volume 11.1 fL (7.4-10.4); Monocytes % 8.3 %; Neutrophils # 6.83 10^3/uL (1.8-7.7); Neutrophils % 59.1 %; Nucleated Red Blood Cells % 0 %; Platelet Count 251 10^3/cmm (157-399); Red Cell Distribution Width 13.6 % (12.1-15.1); White Blood Count 11.55 10^3/uL (3.29-11.43)
[2024-04-11 13:33] LABS: Alanine Aminotransferase 11 U/L (0-33); Albumin Level 4.4 g/dL (3.5-5.2); Alkaline Phosphatase 89 U/L (35-105); Anion Gap 16.2 (5-19); Aspartate Amino Transferase 27 U/L (0-32); Blood Urea Nitrogen 9 mg/dL (6-20); Calcium 8.8 mg/dL (8.5-10.5); Carbon Dioxide 23 mmol/L (22-29); Chloride 103 mmol/L (98-107); Glomerular Filtration Rate 116.6 mL/min (90-130); Glucose 89 mg/dL (65-115); Osmolality Calculated 284 mOsm/kg (285-295); Potassium 4.2 mmol/L (3.5-5.1); Sodium 138 mmol/L (136-145); Total Bilirubin 0.8 mg/dL (0.15-1.2); Total Protein 7.4 g/dL (6.6-8.7)
[2024-04-11 13:48] LABS: Hepatitis B Core AB, Total Non-Reactive (Nonreactive)
== END 2024-04-11 12:29 | disposition home or self-care (01) ==
LOC: LAB 12:29
PROVIDERS: PCP Student in an Organized Health Care Education/Training Program; Visit Provider Student in an Organized Health Care Education/Training Program
DX: Z11.4 Encounter for screening for human immunodeficiency virus [HIV] (principal); B19.20 Unspecified viral hepatitis C without hepatic coma
CPT/HCPCS: 36415; 80053; 81596; 85025; 86704

== ENCOUNTER 2024-05-16 11:42 | Outpatient (CLI) | payer MEDICAID, SELFPAY ==
[2024-05-16 12:08] LABS: Basophils % 0.5 %; Eosinophils % 0.3 %; Hematocrit 38.7 % (36-47); Lymphocytes # 3.1 10^3/uL (0.8-4.8); Lymphocytes % 35.1 %; Mean Corpuscular HGB Conc 33.9 g/dL (30-55); Mean Corpuscular Hemoglobin 27.7 pg (27-33); Mean Corpuscular Volume 81.8 fl (85-98); Mean Platelet Volume 11.2 fL (7.4-10.4); Monocytes # 0.8 10^3/uL (0.2-0.9); Monocytes % 8.8 %; Neutrophils % 55.1 %; Nucleated Red Blood Cells % 0 %; Platelet Count 195 10^3/cmm (157-399); Red Blood Count 4.73 10^6/uL (3.85-5.65); Red Cell Distribution Width 13.5 % (12.1-15.1); White Blood Count 8.72 10^3/uL (3.29-11.43)
[2024-05-16 12:38] LABS: Alanine Aminotransferase < 5 U/L (0-33); Albumin Level 4.9 g/dL (3.5-5.2); Alkaline Phosphatase 73 U/L (35-105); Anion Gap 14.1 (5-19); Aspartate Amino Transferase 15 U/L (0-32); Blood Urea Nitrogen 12 mg/dL (6-20); Carbon Dioxide 22 mmol/L (22-29); Chloride 104 mmol/L (98-107); Globulin 2.9 g/dL (1.3-4.6); Glomerular Filtration Rate 83.7 mL/min (90-130); Glucose 86 mg/dL (65-115); Osmolality Calculated 281 mOsm/kg (285-295); Potassium 4.1 mmol/L (3.5-5.1); Sodium 136 mmol/L (136-145); Total Bilirubin 0.5 mg/dL (0.15-1.2); Total Protein 7.8 g/dL (6.6-8.7)
== END 2024-05-16 11:43 | disposition home or self-care (01) ==
LOC: LAB 11:45
PROVIDERS: PCP Student in an Organized Health Care Education/Training Program; Visit Provider Student in an Organized Health Care Education/Training Program
DX: B19.20 Unspecified viral hepatitis C without hepatic coma (principal)
CPT/HCPCS: 36415; 80053; 85025

== ENCOUNTER 2024-08-29 08:59 | Outpatient (CLI) | payer MEDICAID, SELFPAY | END 2024-08-29 09:00 | disposition home or self-care (01) | LOC: LAB 09:01 | PROVIDERS: PCP Student in an Organized Health Care Education/Training Program; Visit Provider Student in an Organized Health Care Education/Training Program | DX: B19.20 Unspecified viral hepatitis C without hepatic coma (principal) | CPT/HCPCS: 36415; 87522 ==